=== PATIENT | male | born 1980 | race Caucasian/White ===

== ENCOUNTER 2017-05-19 12:45 | Emergency (ER) | payer SELFPAY ==
[~2017-05-19] VITALS: Ht 167.6 cm; Wt 77.7 kg
[2017-05-19 12:47] VITALS: Ht 167.6 cm; Wt 77.7 kg
[2017-05-19 15:08] LABS: PLATELET COUNT 228 x10^3mcL (130-400); RED CELL DISTRIBUTION WIDTH 12.3 % (11.5-14.5)
[2017-05-19 15:11] LABS: BASOPHIL % 2.4 % (0-2)
[2017-05-19 15:15] LABS: AMPHETAMINE QUAL UR POSITIVE (NEG <=1000)
[2017-05-19 15:17] VITALS: BP 147/94
[2017-05-19 15:28] LABS: ALKALINE PHOSPHATASE 58 U/L (46-116); ALT/SGPT 52 U/L (16-63); AST/SGOT 27 U/L (15-37); BILIRUBIN TOTAL 0.2 mg/dL (0.20-1.00); CARBON DIOXIDE 24.6 mmol/L (21-32); CHLORIDE SERUM 106 mmol/L (98-107); GLUCOSE SERUM 104 mg/dL (74-106); POTASSIUM SERUM 3.3 mmol/L (3.5-5.1); SODIUM SERUM 141 mmol/L (136-145); TOTAL PROTEIN, SERUM 6.3 g/dL (6.4-8.2)
[2017-05-19 16:26] LABS: ALBUMIN 3.5 g/dL (3.4-5.0); CALCIUM 7.9 mg/dL (8.5-10.1); GFR1 > 60 mL/min
== END 2017-05-19 15:17 | disposition short-term general hospital (02) ==
LOC: ED 12:45
PROVIDERS: Specialist
DX: S51.812A Laceration without foreign body of left forearm, initial encounter (principal); S54.22XA Injury of radial nerve at forearm level, left arm, initial encounter; W26.0XXA Contact with knife, initial encounter; Y93.89 Activity, other specified; Y92.89 Other specified places as the place of occurrence of the external cause; Y99.8 Other external cause status
CPT/HCPCS: 90715; J0690; J1170; J2405; J3010; Q0092